=== PATIENT | male | born 1975 | race Caucasian/White ===

== ENCOUNTER 2022-11-11 02:19 | Emergency (ER) | payer OTHER, MEDICAID, SELFPAY ==
[2022-11-11] VITALS (8 sets, daily range): BP systolic 152–179; BP diastolic 85–114; PULSE 81–88; RESP 18; TEMP 36.9; O2SAT 96–99; BMI 29.2
--- NOTE | 2022-11-11 03:39 | DI.CT.S_ITS ---
PROCEDURE: CT KIDNEY URETER BLADDER (KUB) INDICATIONS: rt side pain TECHNIQUE: Axial sections were acquired from the lung bases to the pubic symphysis. Coronal and sagittal reformats were performed. For radiation dose reduction, the following was used: automated exposure control, adjustment of mA and/or kV according to patient size. COMPARISON: [facility], CT, CT CHEST ABDOMEN PELVIS WITH TRAUMA, 01/25/2022, 21:44. FINDINGS: Image quality: Excellent. Lung bases: Bibasilar atelectasis. Small hiatal hernia. Heart: No significant findings. URINARY: Right Kidney and ureter: There is a 6 mm stone in the distal right ureter at the right UVJ with CT density 944 HU. There is moderate severe right hydronephrosis with perinephric stranding and periureteral stranding. No other renal calculi. Left Kidney and ureter: Small 1-2 mm nonobstructive renal calculi are present. No hydronephrosis. No hydroureter. Bladder: Normal wall thickness. No stones. ABDOMEN: Liver: Unremarkable. Gallbladder: Unremarkable. Biliary ducts: Unremarkable. Pancreas: Unremarkable. Spleen: Unremarkable. Adrenal Glands: There is an 0.8 cm left adrenal nodule, most likely a small adenoma. Stomach and Bowel: Stomach, small bowel loops, and colon are unremarkable. Normal appendix. Peritoneum: No abnormal intraperitoneal fluid. No free air. Ventral Wall: No hernia. Abdominal Nodes: No enlarged retroperitoneal or mesenteric lymph nodes. Vessels: Aorta and inferior vena cava are normal in size. PELVIS: Pelvic Organs: Unremarkable. Pelvic Nodes: Unremarkable. Normal sized inguinal lymph nodes are noted bilaterally, likely reactive. Miscellaneous: No inguinal hernias are seen. Bones: Unremarkable. IMPRESSION: 1. There is a 6 mm obstructive stone in the distal right ureter at the UVJ causing [id number] hydronephrosis. 2. Small nonobstructive left renal calculi. No left hydronephrosis. No significant discrepancy with the night supervisor radiology preliminary report. Dictated by: Shahbaz Schrader M.D. on 11/11/2022 at 8:09 Approved by: Shahbaz Schrader M.D. on 11/11/2022 at 8:18
--- NOTE | 2022-11-11 03:40 | ED.EXTPRO ---
HPI - Extremity Problem General Chief complaint: Extremity Problem,Nontraumatic Stated complaint: abd/side pain x2 days Time Seen by Provider: 11/11/22 03:35 Source: patient Mode of arrival: Wheelchair History of Present Illness HPI Narrative: Patient here for right lower abdominal pain after tripping and trying to catch himself from falling yesterday 9:00 a.m.. Patient has history of bad joints and pelvis. Since yesterday morning has had constant abdominal right-sided pain does not radiate. No urinary complaints. Worse with palpation and movement. No fever chills. Patient was sleeping when I arrived in the room. Awoke easily. Patient states girlfriend drove him here. Related Data Previous Rx's Medication Instructions Recorded ondansetron 4 mg disintegrating 4 mg PO Q8H PRN nausea and 11/11/22 tablet vomiting #10 tabs oxycodone-acetaminophen 5 mg-325 1 tab PO Q4-6H PRN pain #20 tabs 11/11/22 mg tablet (Percocet) tamsulosin 0.4 mg capsule 0.4 mg PO DAILY #7 caps 11/11/22 Allergies Allergy/AdvReac Type Severity Reaction Status Date / Time No Known Drug Allergies Allergy Verified 11/11/22 02:37 Review of Systems Review of Systems Narrative: GENERAL: negative chills, fatigue, malaise, fever, sweats. HEENT: negative sinus pain, ear pain, sore throat RESPIRATORY: negative dyspnea, cough CARDIOVASCULAR: negative chest pain, palpitations GASTROINTESTINAL: negative nausea, vomiting, positive abdominal pain : negative dysuria, frequency, hematuria MUSCULOSKELETAL: Positive e muscle or bony pain SKIN: negative rash, skin lesions NEUROLOGIC: negative weakness, numbness ROS Unobtainable: All systems reviewed & are unremarkable except as noted in HPI and below Patient History Medical History Femur fracture, left Social History Smoking Status: Current every day smoker Smoking Status: Current every day smoker tobacco type: cigarettes alcohol intake frequency: holidays/special occasions only Substance Use Type: does not use Exam Narrative Exam Narrative: GENERAL: in no distress, not toxic not dyspneic HEAD: Normocephalic. EYES: Pupils equal round ENT: Mucous membranes moist. NECK: Trachea midline. CARDIOVASCULAR: Regular rate and rhythm without murmurs RESPIRATORY: Clear to auscultation. Breath sounds equal bilaterally. No wheezes, rales, or rhonchi. GASTROINTESTINAL: Abdomen soft, has reproducible right lower quadrant tenderness. No peritoneal signs. No bruising seen. No pain out of proportion to exam. Bowel sounds are present EXTREMITIES: No gross deformities. BACK: No flank tenderness. NEURO: AOx4. SKIN: Warm and dry PSYCH: Not anxious, is cooperative Initial Vital Signs Initial Vital Signs: Vital Signs Blood Pressure 170/85 H 11/11/22 02:29 Course Orders Ordered: ED Orders 11/11/22 03:39 CT kidney ureter bladder (KUB) Stat 11/11/22 03:50 Lactate (Lactic Acid) Stat Procalcitonin Stat 11/11/22 03:57 CBC Auto Diff [Complete Blood Count AUTO DIFF] Stat CMP [Comprehensive Metabolic Panel] Stat 11/11/22 05:35 Urinalysis and Microscopic Stat Discontinued Medications Hydromorphone HCl (Hydromorphone 1 Mg Inj) 1 mg IM NOW ONE Stop: 11/11/22 03:40 Last Admin: 11/11/22 03:45 Dose: 1 mg Documented By: Hydromorphone HCl (Hydromorphone 1 Mg Inj) 1 mg IV NOW ONE Stop: 11/11/22 05:39 Last Admin: 11/11/22 05:47 Dose: 1 mg Documented By: Sodium Chloride (Normal Saline 0.9%) 1,000 mls @ 1,000 mls/hr IV BOLUS ONE Stop: 11/11/22 05:32 Last Infusion: 11/11/22 05:53 Dose: 0 mls/hr Documented By: Admin: 11/11/22 04:50 Dose: 1,000 mls/hr Documented By: Ketorolac Tromethamine (Ketorolac 30 Mg/Ml Vial) 15 mg IV NOW ONE Stop: 11/11/22 04:34 Last Admin: 11/11/22 04:50 Dose: 15 mg Documented By: Tamsulosin HCl (Tamsulosin 0.4 Mg Capsule) 0.4 mg PO NOW ONE Stop: 11/11/22 04:34 Last Admin: 11/11/22 04:50 Dose: 0.4 mg Documented By: Vital Signs Vital signs: Vital Signs - 8 hr 11/11/22 02:34 11/11/22 02:29 11/11/22 02:30 Temperature 98.4 F Pulse Rate 86 85 Respiratory Rate 18 Blood Pressure 170/85 H 170/85 H Pulse Oximetry 97 98 Oxygen Delivery Method Room Air 11/11/22 02:31 11/11/22 02:31 11/11/22 03:00 Temperature Pulse Rate 85 Respiratory Rate Blood Pressure 169/114 H 179/108 H Pulse Oximetry 98 Oxygen Delivery Method 11/11/22 03:00 11/11/22 05:49 11/11/22 05:49 Temperature Pulse Rate 87 88 Respiratory Rate Blood Pressure 170/106 H Pulse Oximetry 97 99 Oxygen Delivery Method 11/11/22 06:00 11/11/22 06:00 11/11/22 06:30 Temperature Pulse Rate 86 Respiratory Rate Blood Pressure 160/109 H 152/98 H Pulse Oximetry 96 Oxygen Delivery Method 11/11/22 06:30 Temperature Pulse Rate 81 Respiratory Rate Blood Pressure Pulse Oximetry 99 Oxygen Delivery Method MDM - Extremity (Nontraumatic) Lab Data 11/11/22 03:57 11/11/22 03:57 Labs: Lab Results 11/11/22 11/11/22 11/11/22 Range/Units 03:50 03:50 03:57 WBC 16.2 H (4.5-11.0) X10^3/uL RBC 4.38 L (4.5-5.9) X10^6/uL Hgb 13.4 L (13.5-17.5) g/dL Hct 39.6 L (41-53) % MCV 90.3 (80-100) fL MCH 30.6 (26-34) PG MCHC 33.9 (30-36) % RDW 13.4 (11.6-14.8) % Plt Count 374 (150-400) X10^3/uL Neut % (Auto) 83.2 H (50-75) % Lymph % (Auto) 7.4 L (25-40) % Mill[place] % (Auto) 7.3 (3-14) % Eos % (Auto) 1.4 L (2-4) % Baso % (Auto) 0.7 (0-2) % Neut # (Auto) 31921 H (6249-5943) /uL Lymph # (Auto) 1200 (9369-9219) /uL Millard # (Auto) 1200 H (0-900) /uL Eos # (Auto) 200 (0-450) /uL Baso # (Auto) 100 (0-100) /uL Sodium (137-145) mmol/L Potassium (3.4-5.1) mmol/L Chloride (98-107) mmol/L Carbon Dioxide (22-32) mmol/L BUN (9-20) mg/dL Creatinine (0.66-1.25) mg/dL Estimated GFR (>60) mL/min BUN/Creatinine Ratio (6-22) Glucose (70-100) mg/dL Lactate 2.2 H (0.7-2.1) mmol/L Calcium (8.4-10.2) mg/dL Total Bilirubin (0.2-1.3) mg/dL AST (17-59) IU/L ALT (<50) IU/L Alkaline Phosphatase (38-126) U/L Total Protein (6.3-8.2) g/dL Albumin (3.5-5.0) g/dL Globulin (1.7-4.1) g/dL Albumin/Globulin Ratio (1.0-2.8) Procalcitonin 0.13 (<0.5) ng/mL Urine Color Urine Appearance Urine pH (4.5-8.0) Ur Specific [place] (1.000-1.035) Urine Protein (Negative) Urine Glucose (UA) (Negative) g/dL Urine Ketones (NEGATIVE) Urine Occult Blood (Negative) Urine Nitrate (Negative) Urine Bilirubin (NEGATIVE) Urine Urobilinogen (0.2) E.U./dL Ur Leukocyte Esterase (NEGATIVE) Urine RBC (0-5/HPF) Urine WBC (0-5/HPF) Urine Bacteria (None) Ur Culture Indicated? 11/11/22 11/11/22 Range/Units 03:57 05:35 WBC (4.5-11.0) X10^3/uL RBC (4.5-5.9) X10^6/uL Hgb (13.5-17.5) g/dL Hct (41-53) % MCV (80-100) fL MCH (26-34) PG MCHC (30-36) % RDW (11.6-14.8) % Plt Count (150-400) X10^3/uL Neut % (Auto) (50-75) % Lymph % (Auto) (25-40) % Mill[place] % (Auto) (3-14) % Eos % (Auto) (2-4) % Baso % (Auto) (0-2) % Neut # (Auto) (0721-2996) /uL Lymph # (Auto) (6887-2436) /uL Millard # (Auto) (0-900) /uL Eos # (Auto) (0-450) /uL Baso # (Auto) (0-100) /uL Sodium 134 L (137-145) mmol/L Potassium 4.3 (3.4-5.1) mmol/L Chloride 101 (98-107) mmol/L Carbon Dioxide 25 (22-32) mmol/L BUN 20 (9-20) mg/dL Creatinine 1.11 (0.66-1.25) mg/dL Estimated GFR > 60 (>60) mL/min BUN/Creatinine Ratio 18.0 (6-22) Glucose 106 H (70-100) mg/dL Lactate (0.7-2.1) mmol/L Calcium 9.0 (8.4-10.2) mg/dL Total Bilirubin 0.6 (0.2-1.3) mg/dL AST 30 (17-59) IU/L ALT 30 (<50) IU/L Alkaline Phosphatase 107 (38-126) U/L Total Protein 7.3 (6.3-8.2) g/dL Albumin 4.4 (3.5-5.0) g/dL Globulin 2.9 (1.7-4.1) g/dL Albumin/Globulin Ratio 1.5 (1.0-2.8) Procalcitonin (<0.5) ng/mL Urine Color Yellow Urine Appearance Clear Urine pH 6.0 (4.5-8.0) Ur Specific [place] 1.025 (1.000-1.035) Urine Protein Negative (Negative) Urine Glucose (UA) Negative (Negative) g/dL Urine Ketones Negative (NEGATIVE) Urine Occult Blood 2+ H (Negative) Urine Nitrate Negative (Negative) Urine Bilirubin Negative (NEGATIVE) Urine Urobilinogen 0.2 (0.2) E.U./dL Ur Leukocyte Esterase Negative (NEGATIVE) Urine RBC 1-5/hpf (0-5/HPF) Urine WBC 1-5/hpf (0-5/HPF) Urine Bacteria None seen (None) Ur Culture Indicated? Cult not indicated Imaging Data CT scan - abdomen/pelvis: Radiologist's Impression: 6 mm distal ureteral calculus that is obstructing, severe right hydroureteronephrosis and perinephric periureteral inflammatory changes. [facility] Narrative Medical decision making narrative: Patient here for right lower abdominal pain after tripping and trying to catch himself from falling yesterday 9:00 a.m.. Patient has history of bad joints and pelvis. Since yesterday morning has had constant abdominal right-sided pain does not radiate. No urinary complaints. Worse with palpation and movement. No fever chills. Patient was sleeping when I arrived in the room. Awoke easily. Patient states girlfriend drove him here. After history and exam CBC CMP CT abdomen pelvis Dilaudid ordered [facility] CC: Right lower abdomen pain Complicating co-morbidities: Chronic hip and pelvis pain Data collected from: Patient Medical records reviewed: No previous visits here for this complaint Differential considered: Includes but not limited to kidney stone muscle strain diverticulitis Exam documented above, pertinent findings include: Tender right lower quadrant Lab Test results independently reviewed as above. Pertinent findings: WBC 16.2 bicarb 25 GFR greater than 60 creatinine 1.11 glucose 106 AST 30 ALT 30, urinalysis negative nitrate negative leukocyte esterase no bacteria Imaging studies independently reviewed: CT KUB impression severe right hydroureteronephrosis and perinephric periureteral inflammatory changes with an obstructing distal ureteral calculus measuring 6 mm Consultations: 6:[address] Mayer, urology on-call, appropriate for discharge per patient home. He will follow up with patient today or tomorrow. White cell count at this time not as concerning as there is no fever. Urinalysis is reassuring. Renal function is reassuring. Patient able to urinate. Treatments: Dilaudid Toradol normal saline Flomax Re-evaluations: 4:[address] results and blood work results. Pain has improved but not resolved. 6:45 a.m.. Patient states pain is much better. He agrees for treatment plan of discharge home and follow up with Dr. Mayer. He has a semi truck driver. Return precautions reviewed with him. He desires discharge home. Discussion: Appropriate for discharge home. Exam and laboratory studies and imaging are reassuring. Pain is controlled. I did review with Urology for follow-up. Patient agrees with treatment plan. Return precautions reviewed with patient. Prescriptions provided. No antibiotics indicated as no fever and urinalysis is reassuring. White cell count likely due to pain/demargination. Diagnosis: Right ureteral stone Discharge Plan Departure Patient Disposition: Home Clinical Impression: Calculus of distal right ureter Instructions: DI for Kidney Stones Activity Restrictions/Additional Instructions: No driving or operating machinery today or when taking prescribed pain medication. You will need to call Dr. Mayer with Urology for office re-evaluation and kidney stone. Keep well hydrated. Return if worse if any questions or concerns. Prescriptions: New oxycodone-acetaminophen [Percocet] 5-325 mg tablet 1 tab PO Q4-6H PRN (Reason: pain) Qty: 20 0RF tamsulosin 0.4 mg capsule 0.4 mg PO DAILY Qty: 7 0RF ondansetron 4 mg tablet,disintegrating 4 mg PO Q8H PRN (Reason: nausea and vomiting) Qty: 10 0RF Referrals: Alex Mayer MD [Physician] - Stand Alone Forms: Patient Portal/API
[2022-11-11] MEDS: HYDROMORPHONE 1 MG INJ IM (03:45)
[2022-11-11 04:09] LABS: Add Manual Diff / Slide Review NO; Basophils Absolute Auto 100 /uL (0-100); Basophils Percent Auto 0.7 % (0-2); Eosinophils Absolute Auto 200 /uL (0-450); Eosinophils Percent Auto 1.4 % (2-4); Hematocrit 39.6 % (41-53); Hemoglobin 13.4 g/dL (13.5-17.5); Lymphocytes Absolute Auto 1200 /uL (1100-4500); Lymphocytes Percent Auto 7.4 % (25-40); Mean Corpuscular HGB Conc 33.9 % (30-36); Mean Corpuscular Hemoglobin 30.6 PG (26-34); Mean Corpuscular Volume 90.3 fL (80-100); Monocytes Absolute Auto 1200 /uL (0-900); Monocytes Percent Auto 7.3 % (3-14); Neutrophils Absolute Auto 13500 /uL (1500-7000); Neutrophils Percent Auto 83.2 % (50-75); Platelet Count 374 X10^3/uL (150-400); Red Blood Cell Count 4.38 X10^6/uL (4.5-5.9); Red Cell Distribution Width 13.4 % (11.6-14.8); White Blood Cell Count 16.2 X10^3/uL (4.5-11.0)
[2022-11-11 04:19] LABS: Alanine Aminotransferase 30 IU/L (<50); Albumin 4.4 g/dL (3.5-5.0); Albumin Globulin Ratio 1.5 (1.0-2.8); Alkaline Phosphatase 107 U/L (38-126); Aspartate Aminotransferase 30 IU/L (17-59); Bilirubin Total 0.6 mg/dL (0.2-1.3); Blood Urea Nitrogen 20 mg/dL (9-20); Carbon Dioxide 25 mmol/L (22-32); Chloride 101 mmol/L (98-107); Estimated Glomerular Filt Rate > 60 mL/min (>60); Globulin 2.9 g/dL (1.7-4.1); Glucose 106 mg/dL (70-100); HEMOLYSIS 27 (0-50); Potassium 4.3 mmol/L (3.4-5.1); Sodium 134 mmol/L (137-145); Total Protein 7.3 g/dL (6.3-8.2)
[2022-11-11 04:46] LABS: Lactate (Lactic Acid) 2.2 mmol/L (0.7-2.1)
[2022-11-11] MEDS: SODIUM CHLORIDE 0.9% 1,000 ML 1000 ML IV (04:50)
[2022-11-11] MEDS: TAMSULOSIN 0.4 MG CAPSULE PO (04:50)
[2022-11-11] MEDS: KETOROLAC 30 MG/ML VIAL 15 MG IV (04:50)
[2022-11-11 05:04] LABS: Procalcitonin 0.13 ng/mL (<0.5)
[2022-11-11] MEDS: HYDROMORPHONE 1 MG INJ IV (05:47)
[2022-11-11 05:49] LABS: Appearance Urine UA CLEAR; Bilirubin Urine UA NEGATIVE (NEGATIVE); Color Urine UA YELLOW; Glucose Urine UA NEGATIVE (Negative); Ketones Urine UA NEGATIVE (NEGATIVE); Leukocyte Esterase Urine UA NEGATIVE (NEGATIVE); Nitrite Urine UA NEGATIVE (Negative); Occult Blood Urine UA 2+ (Negative); Protein Urine UA NEGATIVE (Negative); Specific Gravity Urine UA 1.025 (1.000-1.035); Urobilinogen Urine UA 0.2 E.U./dL (0.2)
[2022-11-11 06:37] LABS: Bacteria Urine None Seen; Culture Indicated Urine Cult Not Indicated; RBC Urine 1-5/HPF (0-5/HPF); WBC Urine 1-5/HPF (0-5/HPF)
[2022-11-11 06:39] LABS: Reflexed Lactate in 2 Hours Y
[2022-11-11 07:10] LABS: Lactate 2HR (Lactic Acid Rflx) 1.9 mmol/L (0.7-2.1)
== END 2022-11-11 06:57 | disposition home or self-care (01) ==
PROVIDERS: Emergency Provider Emergency Medicine
DX: N20.1 Calculus of ureter (principal)
CPT/HCPCS: 36415; 74176; 80053; 81001; 83605; 84145; 85025; 96361; 96372; 96374; 96375; 99284; J1170; J1885